=== PATIENT | male | born 1980 ===

== ENCOUNTER 2016-12-26 18:28 | Emergency (ER) | payer SELFPAY ==
[2016-12-26 18:44] VITALS: BMI 29.1
[2016-12-26 18:46] VITALS: RESP 18; TEMP 98.3
--- NOTE | 2016-12-26 20:43 | C.PDOC ---
History Of Present Illness 36 y/o male presents to the ED with complaints of right knee pain. Today patient was using leg press when he felt his knee cap "come out and I pushed it back in." He reports pain with ambulation. Denies no change in sensation. No direct trauma. Time Seen by Provider: 12/26/16 19:02 Chief Complaint (Nursing): Lower Extremity Problem/Injury History Per: Patient History/Exam Limitations: no limitations Onset/Duration Of Symptoms: Hrs Current Symptoms Are (Timing): Still Present Severity: Moderate Recent travel outside of the [place]: No Past Medical History Reviewed: Historical Data, Nursing Documentation, Vital Signs Vital Signs: Last Vital Signs Temp 98.3 F 12/26/16 18:45 Pulse 91 H 12/26/16 21:10 Resp 18 12/26/16 21:10 BP 138/79 12/26/16 21:10 Pulse Ox 98 12/26/16 21:10 Family History: States: Unknown Family Hx - Social History Hx Alcohol Use: No Hx Substance Use: No - Immunization History Hx Tetanus Toxoid Vaccination: Yes Hx Influenza Vaccination: Yes Hx Pneumococcal Vaccination: Yes Review Of Systems Musculoskeletal: Positive for: Other (right knee pain) Neurological: Negative for: Weakness, Numbness Physical Exam - Physical Exam Appears: Non-toxic, No Acute Distress Skin: Warm, Dry, No Rash Head: Atraumatic, Normacephalic Eye(s): bilateral: Normal Inspection, EOMI Nose: Normal Oral Mucosa: Moist Chest: Symmetrical Respiratory: No Accessory Muscle Use Extremity: No Normal ROM (decreased), Tenderness, Capillary Refill (<2 seconds) , Swelling, Other (indentation to superior aspect right patella) Pulses: Right Dorsalis Pedis: Normal Neurological/Psych: Oriented x3, Normal Speech, Normal Sensation ED Course And Treatment O2 Sat by Pulse Oximetry: 96 (room air) Pulse Ox Interpretation: Normal - CT Scan/US CT knee Other Rad Studies (CT/US): Read By Radiologist, Radiology Report Reviewed CT/US Interpretation: EXAM: CT Right Lower Extremity Without Intravenous Contrast, Knee. CLINICAL HISTORY: 36 years old, male; Pain and injury or trauma ; Fall; Initial encounter; Abrasion;. Knee; Right. TECHNIQUE: Axial computed tomography images of the right knee without intravenous contrast. This CT exam was performed using one or more of the following dose reduction techniques: automated exposure control, adjustment of the mA and/or kV according to patient size, and/or use of. iterative reconstruction technique. Coronal and sagittal reformatted images were created and. reviewed. COMPARISON: No relevant prior studies available. FINDINGS: Bones/joints: There are tiny bone fragments seen above the patella which can be seen in patients. with avulsion or partial avulsion of the quadriceps tendons from their patellar insertion. Small knee effusion. Soft tissues: Edema in the soft tissues anterior to the knee. IMPRESSION: 1. There are tiny bone fragments seen above the patella which can be seen in patients with avulsion. or partial avulsion of the quadriceps tendons from their patellar insertion. Correlation with physical. findings would be helpful. MRI could be performed for further evaluation if indicated. 2. Edema in the soft tissues anterior to the knee. 3. Small knee effusion. Thank you for allowing us to participate in the care of your patient. Progress Note: Plan: Right knee CT. Pt refused pain medication, currenlty without pain. paged Dr Armijo ortho agricultural education professor at 2042. Case discussed with Dr Armijo who evaluated CT, instructed knee immobilizer and outpt follow up. Pt was given copies of CT and instructed strict follow up. Disposition - Disposition Referrals: Roderick Armijo MD [Staff Provider] - Disposition: HOME/ ROUTINE Disposition Time: 20:56 Condition: GOOD Additional Instructions: Rest, ice and elevate the area. Follow up with bone doctor as referred below. When you call for an appointment inform them that you came to the [facility] ER and the doctor spoke to the orthopedist agricultural education professor. Prescriptions: Naproxen [Naprosyn] 1 tab PO BID PRN #20 tab PRN Reason: Pain Instructions: Tendon Rupture (ED) - Clinical Impression Clinical Impression: Right knee pain, Quadriceps tendon rupture - PA / [employer] / Resident Statement MD/DO has reviewed & agrees with the documentation as recorded. - Scribe Statement The provider has reviewed the documentation as recorded by the Helenaibradha Marie All medical record entries made by the Scribe were at my direction and personally dictated by me. I have reviewed the chart and agree that the record accurately reflects my personal performance of the history, physical exam, medical decision making, and the department course for this patient. I have also personally directed, reviewed, and agree with the discharge instructions and disposition.
[2016-12-26 21:11] VITALS: BP 138/79; PULSE 91
--- NOTE | 2016-12-27 15:17 | CT ---
PROCEDURE: CT of the Right Knee. TECHNIQUE: This CT exam was performed using one or more of the following dose reduction techniques: Automated exposure control, adjustment of the mA and/or kV according to patient size, and/or use of iterative reconstruction technique. DLP: 275 mGy-cm. Intravenous contrast was not utilized as requested. There is a fracture dislocation involving the distal femur right femur proximal right tibia and fibula. Mild joint space narrowing and articular sclerosis appreciated the medial femorotibial compartment compatible with osteoarthritis (mild). Note is made of thickening of the distal portion of the quadriceps tendon with proximal to its insertion, with 2 associated small calcifications. While this could reflect calcific tendinopathy, an acute or subacute tear is not excluded and follow-up MRI is advised for greater characterization. Trace suprapatellar bursa effusion is encounter. Popliteal fossa appears unremarkable as imaged no suspicious lytic or blastic changes. Impression: Calcific tendinopathy is identified at the distal quadriceps tendon with underlying acute to subacute tear not excluded. Follow-up MRI is advised for greater characterization. Mild degenerative joint disease. No acute femoral or tibial fracture is seen related to the right knee joint. The proximal fibula appears intact.
[2016-12-30 00:38] VITALS: O2SAT 96
== END 2016-12-26 21:15 | disposition home or self-care (01) ==
LOC: C.ER 18:28 → SUPCPDRO 18:28 → C.ER 21:15
DX: S76.111A Strain of right quadriceps muscle, fascia and tendon, initial encounter (principal); X58.XXXA Exposure to other specified factors, initial encounter; Y93.B1 Activity, exercise machines primarily for muscle strengthening; M25.561 Pain in right knee